=== PATIENT | female | born 2000 | race Caucasian/White ===

== ENCOUNTER 2025-04-16 21:36 | Emergency (ER) | payer SELFPAY ==
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
[2025-04-16 22:30] VITALS: BP 127/79; PULSE 93; RESP 22; TEMP 36.6; O2SAT 95; BMI 25.1
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
[2025-04-16 23:05] VITALS: BP 109/78; PULSE 81; O2SAT 97
[2025-04-16 23:11] LABS: Microscopic, Urine URINE MICROSCOPIC (MICROSCOPIC)
[2025-04-16 23:19] LABS: Bilirubin,Urine Negative (Negative); Color,Urine YELLOW (Yellow); Glucose,Urine (UA) Negative (Negative); Ketones,Urine Negative (Negative); Leukocyte Esterase,Urine Negative (Negative); PH,Urine 5.5 (5.0-8.5); Protein,Urine Negative (Negative); Specific Gravity, Urine >= 1.030 (1.005-1.030); Urobilinogen,Urine 0.2 EU/dl (0.2)
[2025-04-16 23:20] LABS: Urine Pregnancy, HCG Qual. Negative (Negative)
[2025-04-16 23:27] LABS: RBC,Urine Occasional #/hpf (0-3)
[2025-04-16 23:28] LABS: Bacteria,Urine Trace /lpf; Mucus,Urine 3+ /lpf; WBC,Urine Occasional #/hpf (0-3)
[2025-04-16 23:30] VITALS: BP 104/72; PULSE 86; O2SAT 98
--- NOTE | 2025-04-17 00:48 | ECG_ITS ---
APPROVED REPORT Exam: Resting ECG HR:76 bpm ECG Measurements Heart Rate 76 AXES ID 129 P 67 QRSd 77 QRS 83 QT 361 T 54 QTc 391 Conclusion SINUS RHYTHM WITH SINUS ARRHYTHMIA NORMAL ECG Electronically signed by : ALISHA DEAN, 04/17/2025 07:12:50
[2025-04-17] MEDS: ACETAMINOPHEN 500MG TAB 1000 MG PO (00:58)
[2025-04-17 01:19] LABS: Hematocrit 40.6 % (37.0-47.0); Hemoglobin 13.3 g/dL (12.2-16.2); Immature Granulocytes % 0.4 %; Mean Corpuscular HGB Conc 32.8 g/dL (31.8-35.4); Mean Corpuscular Hemoglobin 28.2 pg (27.0-31.2); Mean Corpuscular Volume 86.0 fl (81-99); Nucleated Red Blood Cells % 0 %; Platelet Count 310 K/mm3 (142-424); Red Blood Count 4.72 M/mm3 (4.20-5.40); Red Cell Distribution Width-SD 39.1 fL; White Blood Count 13.6 K/mm3 (4.8-10.8)
[2025-04-17 01:25] VITALS: BP 0/0; PULSE 0; RESP 16; TEMP -17.7; TEMP 0; O2SAT 98
[2025-04-17 01:34] LABS: Alanine Aminotransferase 23 U/L (12-78); Albumin Level 4.6 g/dl (3.5-5.0); Albumin/Globulin Ratio 1.6 (1.1-1.8); Alkaline Phosphatase 93 U/L (38-126); Anion Gap 13.8 mEq/L (5-15); Aspartate Amino Transferase 35 U/L (14-36); Bilirubin,Total 0.9 mg/dl (0.2-1.3); Blood Urea Nitrogen 13 mg/dl (7-17); Calcium 9.7 mg/dl (8.4-10.2); Carbon Dioxide 22 mmol/L (22.0-30.0); Chloride 107 mmol/L (98-107); Creatinine Clearance Estimated 137 mL/min (50-200); Creatinine,Serum 0.60 mg/dl (0.52-1.04); Estimated Glomerular Filt Rate 122 ml/min (>60); GFR (African American) 147 ML/MIN (>60); Globulin 2.9 g/dL (1.3-3.2); Glucose 100 mg/dl (74-100); Potassium 3.8 mmoL/L (3.5-5.1); Sodium 139 mmol/L (136-145); Total Protein,Serum 7.5 g/dl (6.3-8.2)
[2025-04-17 01:53] LABS: Troponin I < 0.01 ng/ml (0.00-0.034)
== END 2025-04-17 01:26 | disposition left against medical advice (07) ==
PROVIDERS: Physician Assistant; Emergency Provider Emergency Medicine; PCP Nurse Practitioner Family
DX: R07.89 Other chest pain (principal); M54.2 Cervicalgia; M54.50 Low back pain, unspecified; M25.511 Pain in right shoulder; F17.200 Nicotine dependence, unspecified, uncomplicated; V43.52XA Car driver injured in collision with other type car in traffic accident, initial encounter
CPT/HCPCS: 70450; 71250; 72125; 72131; 73030; 80053; 81001; 81025; 84484; 85025; 93005; 99285